=== PATIENT | female | born 1975 | race Caucasian/White ===

== ENCOUNTER 2018-07-20 06:04 | Day surgery (SDC) | payer MEDICAID ==
[2018-07-19 13:10] VITALS: Ht 162.6 cm; Wt 86.3 kg
--- NOTE | 2018-07-19 20:45 | PREOPHP ---
DATE OF ADMISSION: 07/20/2018 HISTORY OF PRESENT ILLNESS: Ms. Mile Nicholson is a 42-year-old 6, para 3, desires perman ent surgical sterilization. PAST MEDICAL HISTORY: None. MEDICATIONS: None. PAST SURGICAL HISTORY: None. OBSTETRICAL HISTORY: x3 vaginal deliveries, x2 missed AB, x1 termination of . GYNECOLOGIC HISTORY: 13, regular 5 to 7 days. Sexually active with 1 partner. Denies any sexually transmitted infections. SOCIAL HISTORY: Denies any smoking, drugs or alcohol. FAMILY HISTORY: None. REVIEW OF SYSTEMS: All within normal except history of present illness. PHYSICAL EXAMINATION: HEENT: Within normal. LUNGS: CTA bilateral. CARDIOVASCULAR: S1, S2. Regular rate, rhythm. ABDOMEN: Soft, nontender, negative distention. EXTREMITIES: Negative edema. No calf tenderness. GENITOURINARY: Vaginal: Normal external genitalia. Cervix negative CMT. Negative lesions. Adnexa negative mass, nontender bilateral. Fundus within normal limits. ASSESSMENT: 1. Multiparity. 2. Desires permanent surgical sterilization. PLAN: Consent for laparoscopic bilateral tubal sterilization. Risks, benefits and alternatives were explained. All questions were answered. Dictated By: RADHA FERNANDEZ/WINSTON Conf#: [id number] DID#: [id number]
[~2018-07-20] VITALS: Ht 162.6 cm; Wt 86.3 kg
[2018-07-20] VITALS (15 sets, daily range): BP systolic 93–120; BP diastolic 42–65; PULSE 54–93; RESP 14–24
[2018-07-20] MEDS ORDERED: DESFLURANE 15 MIN ONE (07:00)
--- NOTE | 2018-07-20 07:23 | PREAC ---
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 ) Surgery & Anesthesia Issues No known issue Meds Anticoagulation: No Beta Geovanny within 24 hr: No Reason Beta Geovanny not given: Pt. not on B-Geovanny No Active Prescriptions or Reported Meds Meds reviewed: Yes Allergies Coded Allergies: No Known Allergy (Unverified , 07/19/18) Allergies Reviewed: Yes Labs/Studies Labs Reviewed: Reviewed by anesthesiologist Result Diagram: 07/20/18 0630 Laboratory Tests 07/20/18 06:30 test: Negative Pre-procedure Exam Last vitals Vital Signs Date Temp Pulse Resp B/P (MAP) Pulse Ox O2 O2 Flow FiO2 Time Delivery Rate 07/20/18 97.4 93 18 120/65 100 Room Air 06:44 (83) Airway: Adequate mouth opening, Adequate thyromental dist Mallampati: Mallampati II Teeth: Normal Lung: Normal Heart: Normal ASA Physical Status ASA physical status: 1 Emergency: None Planned Anesthetic General/MAC: ETT Planned Pain Management Parenteral pain med, Local by surgeon Pre-operative Attestations Prior to commencing anesthesia and surgery, the patient was re-evaluated, there was verification of: *The patient's identity *The results of appropriate recent lab work and preoperative vital signs *The above evaluation not changing prior to induction *Anesthetic plan, risk benefits, alternative and complications discussed with patient/family; questions answered; patient/family understands, accepts and wishes to proceed. DUNCAN SENIOR Jul 20, 2018 07:23
[2018-07-20] MEDS ORDERED: PROPOFOL 20 ML ONE (07:27)
[2018-07-20] MEDS ORDERED: CEFAZOLIN 1 GM INJ ONE (07:27)
[2018-07-20] MEDS ORDERED: LIDOCAINE 2% (SDV) 5 ML INJ ONE (07:27)
[2018-07-20] MEDS ORDERED: MIDAZOLAM 1 MG/ML 2 ML INJ ONE (07:27)
[2018-07-20] MEDS ORDERED: ROCURONIUM 50 MG INJ ONE (07:27)
[2018-07-20] MEDS ORDERED: FENTAnyl 50 MCG/ML VIAL ONE ×2 (07:28→09:09)
[2018-07-20] MEDS ORDERED: OXYCODONE/ACETAMINOPHEN (5/325) TAB PO PRN ×2 (07:30)
[2018-07-20] MEDS ORDERED: ONDANSETRON 4 MG INJ IV PRN (07:30)
[2018-07-20] MEDS ORDERED: MEPERIDINE 25 MG INJ IV PRN (07:30)
[2018-07-20] MEDS ORDERED: HYDROmorphONE 1 MG/5 ML IV SYRINGE IV PRN ×3 (07:30)
[2018-07-20] MEDS ORDERED: METOCLOPRAMIDE 10 MG INJ ONE (07:32)
[2018-07-20] MEDS ORDERED: ONDANSETRON 4 MG INJ ONE (07:32)
[2018-07-20] MEDS ORDERED: FAMOTIDINE 20 MG INJ ONE (07:32)
[2018-07-20] MEDS ORDERED: DEXAMETHASONE 4 MG/ML 5 ML INJ ONE (07:32)
[2018-07-20] MEDS ORDERED: GLYCOPYRROLATE 0.4 MG INJ ONE (08:24)
[2018-07-20] MEDS ORDERED: NEOSTIGMINE 3 MG/3 ML SYRINGE ONE (08:24)
--- NOTE | 2018-07-20 09:03 | PD.PPDC ---
PROFESSOR OF BUSINESS Discharge Instruction Condition [id number] Patient Condition: [id number] Good Diet Makmn2Nd Diet: Ckmlw8n Resume Regular Diet Activity/Restrictions [id number] Activity: Uwnww5y Normal Activity May Shower Follow-up Follow-up with Physician: 2, Week/Weeks Return to clinic for [id number] SALVAGER HELPER Instructions: Fjvqg3w Fever greater than 101 Chills Worsening abdominal pain Excessive Vaginal Bleeding More than 2 pads per hour Unable to tolerate diet Rhifc3Tg OB Instructions: Lhuty5v Breast Tenderness Depression Blurried Vision Headache [id number] Surgical Instructions: Dqhxv0d Incisional Drainage Incisional Redness RADHA KHAN MD Jul 20, 2018 09:03
--- NOTE | 2018-07-20 09:03 | OPPN ---
Date/Time of Note Date/Time of Note DATE: 07/20/18 TIME: 09:01 Operative Report Planned Procedure Procedure date Jul 20, 2018 Procedure(s) laparoscopic bilateral tubal fulguration Performed by see signature line Scalder: RADHA KHAN MD 2nd Scalder none Pre-procedure diagnosis 1. Multiparity. 2. Desires permanent surgical sterilization. [id number] Anesthesia Type: Rldjq5w general Post-Procedure Post-procedure diagnosis same Findings Live Baby [], Apgars [] and [], weight [], position [], [] presentation []cord. Estimated Blood Loss: minimal Specimen(s) none Grafts/Implant(s) none Complication(s) none RADHA KHAN MD Jul 20, 2018 09:03
--- NOTE | 2018-07-20 10:18 | PAC ---
Date/Time of Note Date/Time of Note DATE: 07/20/18 TIME: 10:18 Post-Anesthesia Notes Post-Anesthesia Note Last documented vital signs Vital Signs Date Temp Pulse Resp B/P (MAP) Pulse Ox O2 O2 Flow FiO2 Time Delivery Rate 07/20/18 60 22 99/49 (66) 96 Room Air 09:43 07/20/18 2.0 09:28 07/20/18 99.0 09:11 Activity: WNL Respiratory function: WNL Cardiovascular function: WNL Mental status: Baseline Pain reasonably controlled: Yes Hydration appropriate: Yes Nausea/Vomiting absent: Yes DUNCAN SENIOR Jul 20, 2018 10:18
--- NOTE | 2018-07-20 20:47 | OPR ---
DATE OF OPERATION: 07/20/2018 PRIMARY DIAGNOSES: Multiparity, desires permanent surgical sterilization. POSTOPERATIVE DIAGNOSES: Multiparity, desires permanent surgical sterilization. PROCEDURE: Laparoscopic bilateral tubal fulguration. SURGEON: Dakota Gonzalez MD. MUSEUM CURATOR: None. ANESTHESIA: General. COMPLICATIONS: None. ESTIMATED BLOOD LOSS: Minimal. FINDINGS: Normal uterus, tubes and ovaries. DESCRIPTION OF PROCEDURE: After explaining the risks, benefits and alternatives, the patient and con sent signed in chart, the patient was taken to the operating room where general anesthesia was obtain ed without difficulty. The patient was then examined under anesthesia and found to have a small uter us with normal adnexa. She was then placed in a dorsal lithotomy position and prepared and draped in a sterile fashion. A heavy-weighted speculum was then placed in the patient's vagina and the anteri or lip of the cervix was grasped with a single tooth tenaculum. A HUMI uterine manipulator was then advanced into the uterus to provide means to manipulate the uterus. The speculum was then removed fr om the vagina. Attention was then turned to the patient's abdomen where a 5 mm skin incision was mad e in the umbilical fold. The Veress needle was carefully introduced into the peritoneal cavity at 45 -degree angle while tenting the abdominal wall. Intraperitoneal placement was confirmed by water-cesilia led syringe and drop in intraabdominal pressure with insufflation of CO2 gas. The trocar and sleeve were then advanced without difficulty into the abdomen where intraabdominal placement was confirmed b y laparoscope. Pneumoperitoneum was obtained with 4 liters of CO2 gas and a 5 mm trocar and sleeve w ere then advanced without difficulty into the abdomen where the intraabdominal placement was confirme d by laparoscope. A second incision was made 2 cm above the symphysis pubis and to the midline. The second trocar and sleeve were then advanced under direct visualization. A survey of the patient's p eric and abdomen revealed normal. The right fallopian tube was fulgurated in multiple areas of the ampullary and isthmus area of the fallopian tube. Good blanching was observed. Similarly, the left fallopian tube was fulgurated. The instruments were then removed from the patient's abdomen and the incision was repaired with 3-0 Vicryl. The HUMI was then removed from the vagina with no bleeding no ivelisse from the cervix. The patient tolerated procedure well. All counts were correct. The patient wa s taken to recovery room in stable condition. Dictated By: DAKOTA FERNANDEZ/WINSTON Conf#: [id number] DID#: [id number]
== END 2018-07-20 11:10 | disposition home or self-care (01) ==
LOC: SDS 06:04
PROVIDERS: ATTEND Obstetrics & Gynecology
DX: Z30.2 Encounter for sterilization (principal)
CPT/HCPCS: 58670; 84702; 85025; 86850; 86900; 86901; J0690; J1100; J1170; J2250; J2405; J2710; J2765; J3010; Z7512; Z7610